=== PATIENT | male | born 1955 | race Caucasian/White ===

== ENCOUNTER → 2016-12-05 | Outpatient (CLI) | payer OTHER ==
[~2016-12-05] MED LIST: ASPIR 8181 MG PO; COREG6.25 MG PO; IMDUR 30 MG TAB30 M1 PO; LISINOPRIL10 MG PO; METFORMIN HCL500 MG PO; SIMVASTATIN40 MG PO
== END ==
LOC: LITH 05:17
DX: N20.0 Calculus of kidney (principal)